=== PATIENT | female | born 1955 | race Caucasian/White ===

== ENCOUNTER 2017-09-15 13:06 | Emergency (ER) | payer OTHER ==
[2017-09-15 13:11] VITALS: TEMP 98.2; BMI 32.2
[2017-09-15] MEDS ORDERED: ACETAMINOPHEN 325 MG TABLET (FP) PO ONE (14:06)
--- NOTE | 2017-09-15 14:09 | PDOC ---
History of Present Illness - General History Source: Patient, Family - History of Present Illness Timing/Duration: reports: 1-3 hours Associated Symptoms: reports: nausea/vomiting. denies: confusion, loss of consciousness <Citizen [place] - Last Filed: 09/15/17 15:59> <Li Michaels - Last Filed: 09/15/17 17:46> - General Chief Complaint: Injury Stated Complaint: FALL Time Seen by Provider: 09/15/17 13:40 Past History - Past Medical History HTN: Yes - Suicide/Smoking/Psychosocial Hx Smoking History: Never smoked Hx Alcohol Use: No Drug/Substance Use Hx: No <Citizen [place] - Last Filed: 09/15/17 15:59> <iL Michaels - Last Filed: 09/15/17 17:46> - Past Medical History Allergies/Adverse Reactions: Allergies Allergy/AdvReac Type Severity Reaction Status Date / Time aspirin Allergy Swelling Verified 09/15/17 13:11 Home Medications: Ambulatory Orders Losartan Potassium 30 mg PO DAILY 09/15/17 Multivit with Iron-Minerals [Compete] 1 each PO DAILY 09/15/17 Review of Systems - Review of Systems Neurological: Yes: Headache, Dizziness <Citizen [place] - Last Filed: 09/15/17 15:59> *Physical Exam - Vital Signs Last Vital Signs Temp Pulse Resp BP Pulse Ox 98.2 F 83 20 142/83 99 09/15/17 13:07 09/15/17 13:07 09/15/17 13:07 09/15/17 13:07 09/15/17 13:07 - Physical Exam General Appearance: Yes: Appropriately Dressed. No: Apparent Distress HEENT: positive: Normal Voice, Other (contusion to R parietal scalp, no open wound) Neck: positive: Supple. negative: Tender, Decreased range of motion Respiratory/Chest: negative: Respiratory Distress Gastrointestinal/Abdominal: positive: Soft. negative: Tender Integumentary: positive: Dry, Warm Neurologic: positive: Fully Oriented, Alert, Normal Mood/Affect, Motor Strength 5/5. negative: Facial Droop <Jeff Bernard - Last Filed: 09/15/17 15:59> - Vital Signs Last Vital Signs Temp Pulse Resp BP Pulse Ox 98.2 F 63 14 110/64 96 09/15/17 13:07 09/15/17 15:34 09/15/17 15:34 09/15/17 15:34 09/15/17 15:34 <Li Michaels - Last Filed: 09/15/17 17:46> ED Treatment Course - RADIOLOGY Radiology Studies Ordered: Category Date Time Status HEAD CT WITHOUT CONTRAST [CT] Stat CT Scan 09/15/17 14:06 Ordered <Jeff Bernard - Last Filed: 09/15/17 15:59> - Medications Given in the ED: ED Medications Discontinued Medications Generic Name Dose Route Start Last Admin Trade Name Paty PRN Reason Stop Dose Admin Acetaminophen 650 mg 09/15/17 14:06 09/15/17 14:13 Tylenol - PO 09/15/17 14:07 650 mg ONCE ONE Administration <Li Michaels - Last Filed: 09/15/17 17:46> Medical Decision Making - Medical Decision Making 09/15/17 14:07 62-year-old female, history of high blood pressure, brought in by daughter for head injury. Patient states she slipped and fell in the shower today, striking right side of head against tub. Denies any LOC. Does report feeling slightly dizzy and nauseous. No vomiting, visual changes, or focal weakness. No chest pain or dizziness prior to fall. Not on any blood thinners. Reports no other injury See exam Head injury No LOC Not on blood thinners Alert and well radha w/ no focal deficits -pain control -CT head 09/15/17 14:09 09/15/17 15:12 CT head read as negative. Pt has remained stable and well-appearing throughout ED visit. Inocencio dc w/ pmd f/u. Reasons to return discussed with patient and family <Jeff Bernard - Last Filed: 09/15/17 15:59> *DC/Admit/Observation/Transfer <Jeff Bernard Last Filed: 09/15/17 15:59> - Attestations Physician Attestion: I reviewed the case with the mid-level practitioner and agree with the mid- level practitioner's assessment, diagnosis and disposition. <Li Michaels - Last Filed: 09/15/17 17:46> Diagnosis at time of Disposition: Head injury Qualifiers: Encounter type: initial encounter Qualified Code(s): S09.90XA - Unspecified injury of head, initial encounter - Discharge Dispostion Disposition: HOME Condition at time of disposition: Good - Patient Instructions Printed Discharge Instructions: DI for Closed Head Injury Additional Instructions: CAT scan is normal at this time. For headache take Tylenol as needed. If symptoms worsen, return to ER
[2017-09-15] MEDS ORDERED: ACETAMINOPHEN 325 MG TABLET (FP) ONE (14:10)
[2017-09-15 15:36] VITALS: BP 110/64; PULSE 63
== END 2017-09-15 15:36 | disposition home or self-care (01) ==
LOC: JER 13:06
DX: S09.8XXA Other specified injuries of head, initial encounter (principal); W18.2XXA Fall in (into) shower or empty bathtub, initial encounter; Y93.E1 Activity, personal bathing and showering; Y92.031 Bathroom in apartment as the place of occurrence of the external cause; I10 Essential (primary) hypertension
CPT/HCPCS: 70450-TC; 99283-25